=== PATIENT | male | born 2000 | race Caucasian/White ===

== ENCOUNTER 2022-02-24 12:20 | Emergency (ER) | payer OTHER ==
[~2022-02-24] VITALS: Ht 177.8 cm; Wt 67.6 kg
[2022-02-24 12:43] VITALS: BP 120/78
--- NOTE | 2022-02-24 16:08 | NUR ---
PT AMBULATED TO ER BED 3
--- NOTE | 2022-02-24 16:13 | NUR ---
DR SHEETS AT BEDSIDE EVALUATING PT
--- NOTE | 2022-02-24 16:17 | NUR ---
21 Y/O MALE BIB MOTHER C/O CHETS PAIN WHEN WAKING UP 01/28 "STRETCHING FEELING", DENIES ANY CHEST PAIN AT THE MOMENT, DENIED N/V/D/BROWN/BLURRING. DENIES ANY COUGH, SOB, LUNG SOUNDS CLEAR, NO MURMUR NOTED AT THE MOMENT. DENIES ANY MEDICATEION TAKEN FOR PAIN. NKA HEART MURMUR WHEN HE WAS A CHILD
[2022-02-24] MEDS ORDERED: IBUP-1842 PO (16:19)
[2022-02-24] MEDS ORDERED: FAMO-90 PO (16:19)
[2022-02-24] MEDS ORDERED: ALUM355S59 PO (16:19)
[2022-02-24 16:26] VITALS: BP 102/75
--- NOTE | 2022-02-24 16:27 | NUR ---
Patient discharged with v/s stable. Written and verbal after care instructions given and explained. Patient alert, oriented and verbalized understanding of instructions. Ambulatory with steady gait. All questions addressed prior to discharge. ID band removed. Patient advised to follow up with PMD. Rx of MAALOX ADVANCED SUSPENSION, PEPCID, IBUPROFEN given. Patient educated on indication of medication including possible reaction and side effects. Opportunity to ask questions provided and answered.
== END 2022-02-24 16:27 | disposition home or self-care (01) ==
LOC: MED 12:20
DX: R07.89 Other chest pain (principal)
CPT/HCPCS: 71045; 93005; 99283

== ENCOUNTER 2022-03-06 11:53 | Emergency (ER) | payer OTHER ==
[~2022-03-06] VITALS: Ht 175.3 cm; Wt 67.6 kg
[~2022-03-06 11:53] MED LIST: ALUM355S59 PO; FAMO-90 PO; IBUP-1842 PO
[2022-03-06 11:59] VITALS: BP 134/82
--- NOTE | 2022-03-06 15:04 | NUR ---
Patient discharged with v/s stable. Written and verbal after care instructions given to patient. Patient verbalized understanding. Ambulatory with steady gait. All questions addressed prior to discharge. Advised to follow up with PMD.
--- NOTE | 2022-03-06 15:05 | NUR ---
PT SEEN BY GLENYS COLE, NO NURSING INTEVENTIONS PROVIDED
== END 2022-03-06 15:04 | disposition home or self-care (01) ==
LOC: MED 11:53
DX: R20.2 Paresthesia of skin (principal); M79.10 Myalgia, unspecified site; Z79.899 Other long term (current) drug therapy
CPT/HCPCS: 99281